=== PATIENT | male | born 1945 | race Caucasian/White ===

== ENCOUNTER → 2017-04-25 | Outpatient (CLI) | payer MEDICARE ==
--- NOTE | 2017-04-25 14:31 | XR ---
EXAMINATION TYPE: XR bone survey complete DATE OF EXAM: 04/25/2017 COMPARISON: Nuclear medicine bone scan dated 12/02/2009. Chest radiograph dated 02/26/2013. HISTORY: Multiple myeloma in remission. Polyneuropathy. Bony calvarium : 2 views of the bony calvarium demonstrate. No punched out lytic lesions. Spine: Two views of the cervical, thoracic and lumbar spines are submitted. Degenerative changes of the cervical spine demonstrated as disc osteophyte complexes are seen at C4-C5, C5-C6, and C6-C7. Unc overtebral hypertrophy is also seen. Degenerative changes are also seen of the thoracolumbar spine. PELVIS: Single view of the pelvis demonstrates. Punctate sclerotic focus of the left iliac bone like ly relates to a bone island. No lytic lesions are appreciated. UPPER EXTREMITIES: Two views of the upper extremities. No lytic lesions. LOWER EXTREMITIES: 2 views of the lower extremities. No lytic lesions. CHEST: Single view of the chest. Probable prior fracture deformities are seen of both clavicles, midp ortion on the right and distal clavicle on the left although the left distal clavicle does appear sli ghtly expansile. This finding appears unchanged from 02/26/2013. IMPRESSION: 1. Chronic deformity of the right mid clavicle and distal left clavicle. 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 This is a stable finding from the prior exam. Of 02/26/2013.
== END | disposition home or self-care (01) ==
LOC: RADXRMAIN 12:52
PROVIDERS: ATTEND Internal Medicine Hematology & Oncology
DX: M95.8 Other specified acquired deformities of musculoskeletal system (principal); C90.01 Multiple myeloma in remission; D64.9 Anemia, unspecified; G89.3 Neoplasm related pain (acute) (chronic); G62.9 Polyneuropathy, unspecified
CPT/HCPCS: 77075

== ENCOUNTER → 2018-05-14 | Outpatient (CLI) | payer MEDICARE ==
--- NOTE | 2018-05-14 12:48 | XR ---
EXAMINATION TYPE: XR bone survey complete DATE OF EXAM: 05/14/2018 COMPARISON: NONE HISTORY: Bony calvarium : 2 views of the bony calvarium demonstrate. No punched out lytic lesions. Spine: Two views of the cervical, thoracic and lumbar spines are submitted. Degenerative changes of t he cervical spine demonstrated as disc osteophyte complexes are seen at C4-C5, C5-C6, and C6-C7. Unco vertebral hypertrophy is also seen. Degenerative changes are also seen of the thoracolumbar spine. A grade 1 anterolisthesis L5 on S1. Could not exclude a spondylolysis. PELVIS: Single view of the pelvis demonstrates. Punctate sclerotic focus of the left iliac bone likel y relates to a bone island. No lytic lesions are appreciated. UPPER EXTREMITIES: Two views of the upper extremities. No lytic lesions. LOWER EXTREMITIES: 2 views of the lower extremities. No lytic lesions. CHEST: Single view of the chest. Probable prior fracture deformities are seen of both clavicles, midp ortion on the right and distal clavicle on the left although the left distal clavicle does appear sli ghtly expansile. This finding appears unchanged from 02/26/2013. IMPRESSION: 1. Stable bilateral clavicular lesions unchanged from the prior exam.
== END | disposition home or self-care (01) ==
LOC: RADXRMAIN 11:34
PROVIDERS: ATTEND Internal Medicine Hematology & Oncology
DX: M89.9 Disorder of bone, unspecified (principal); C90.01 Multiple myeloma in remission; D64.9 Anemia, unspecified; G89.3 Neoplasm related pain (acute) (chronic); G62.9 Polyneuropathy, unspecified
CPT/HCPCS: 77075

== ENCOUNTER → 2021-07-19 | Outpatient (CLI) | payer MEDICARE ==
--- NOTE | 2021-07-22 08:54 | NM ---
EXAMINATION TYPE: NM DatScan Brain SPECT DATE OF EXAM: 07/19/2021 COMPARISON: NONE HISTORY: 76-year-old male G20, Parkinson's. TECHNIQUE: 10 drops of Lugol's solution was administered 1 hour prior to injection as a thyroid bloc yosi agent. After the administration of 4.31 mCi I-123 Ioflupane DaTscan. Images obtained 3 hours p ost injection. SPECT images of the brain were acquired with axial and coronal reconstructions. FINDINGS: There is normal uptake of tracer throughout the striata. No abnormal increase in background activity. IMPRESSION: This normal appearance is against a diagnosis of idiopathic Parkinson's disease or a parkinsonian syn drome. It is seen in healthy individuals and also patients with essential tremor, drug-induced elpidio sonism, and vascular psuedo-parkinsonism.
== END | disposition home or self-care (01) ==
LOC: RADNMMAIN 10:47
PROVIDERS: ATTEND Psychiatry & Neurology Neurology
DX: G20 Parkinson's disease (principal)
CPT/HCPCS: 78803; A9584

== ENCOUNTER 2023-01-01 15:57 | Inpatient (IN) | payer MEDICAID ==
[2023-01-01] MEDS ORDERED: DRY MOUTH SPRAY 44.3 SPRAY/44.3 ML SPRAY MUCOUS MEM PRN (15:58)
[2023-01-01] MEDS ORDERED: LORazepam 2 MG/ML INJ IV PRN (15:58)
[2023-01-01] MEDS ORDERED: ONDANSETRON 4 MG/2 ML VIAL IVP PRN (15:58)
[2023-01-01] MEDS ORDERED: HALOPERIDOL LACTATE 5 MG/ML 1 ML VIAL IM PRN (15:58)
[2023-01-01] MEDS ORDERED: GLYCOPYRROLATE 0.2 MG/ML 2 ML VIAL IVP PRN (15:58)
[2023-01-01] MEDS ORDERED: ACETAMINOPHEN SUPPOSITORY 650 MG SUPP RECTAL PRN (15:58)
[2023-01-01] MEDS ORDERED: ATROPINE OPHTH SOLN 1% 5ML BTL SUBLINGUAL PRN (15:58)
[2023-01-01] MEDS ORDERED: MORPHINE SULFATE 4 MG/ML SYRINGE IV PRN (15:58)
[2023-01-01] MEDS ORDERED: MORPHINE SULFATE (100 MG/2 ML) 100 MG in SODIUM CHLORIDE 0.9% 100 ML IV SCH (16:00)
[2023-01-01] MEDS ORDERED: SCOPOLAMINE 1 MG/72 HR PATCH TRANSDERM SCH (16:00)
[2023-01-01] MEDS ORDERED: HYDROmorphone (PF) 50 MG in SODIUM CHLORIDE 0.9% 45 ML IV SCH (16:15)
[2023-01-01] MEDS ORDERED: SODIUM CHLORIDE 0.9% 1,000 ML IV SCH (16:45)
== END 2023-01-01 18:47 | disposition expired | DRG 951 ==
LOC: 2SICU 16:14
PROVIDERS: ADMIT Family Medicine; ATTEND Family Medicine
DX: Z51.5 Encounter for palliative care (principal); E11.10 Type 2 diabetes mellitus with ketoacidosis without coma; G93.41 Metabolic encephalopathy; J96.01 Acute respiratory failure with hypoxia; J69.0 Pneumonitis due to inhalation of food and vomit; I21.4 Non-ST elevation (NSTEMI) myocardial infarction; J44.0 Chronic obstructive pulmonary disease with (acute) lower respiratory infection; I50.32 Chronic diastolic (congestive) heart failure; F03.911 Unspecified dementia, unspecified severity, with agitation; F03.93 Unspecified dementia, unspecified severity, with mood disturbance; C90.01 Multiple myeloma in remission; Z94.84 Stem cells transplant status; I11.0 Hypertensive heart disease with heart failure; I25.10 Atherosclerotic heart disease of native coronary artery without angina pectoris; K21.9 Gastro-esophageal reflux disease without esophagitis; N42.9 Disorder of prostate, unspecified; K59.00 Constipation, unspecified; F32.A Depression, unspecified; Z66 Do not resuscitate; G89.4 Chronic pain syndrome; E11.42 Type 2 diabetes mellitus with diabetic polyneuropathy; K76.0 Fatty (change of) liver, not elsewhere classified; R16.0 Hepatomegaly, not elsewhere classified; N26.1 Atrophy of kidney (terminal); G31.9 Degenerative disease of nervous system, unspecified; D63.0 Anemia in neoplastic disease; I25.2 Old myocardial infarction; Z79.899 Other long term (current) drug therapy; Z79.84 Long term (current) use of oral hypoglycemic drugs; Z79.82 Long term (current) use of aspirin